=== PATIENT | female | born 1995 | race Two or more races ===

== ENCOUNTER → 2025-02-10 | Outpatient (CLI) | payer BC ==
[2025-02-10 13:39] LABS: BASOPHILS % 0.2 % (0.0-2.0); EOSINOPHILS % 2.1 % (0.0-5.0); HEMATOCRIT. 36.5 % (36.0-48.0); HEMOGLOBIN. 12.3 g/dL (12.0-16.0); LYMPHOCYTES % 12.7 % (20.0-50.0); MEAN PLATELET VOLUME 7.2 fl (7.4-10.4); MONOCYTES % 3.5 % (2.0-8.0); NEUTROPHILS % 81.5 % (40.0-76.0); PLATELET 269 x1000/uL (130-400); RED BLOOD CELL COUNT 4.04 mill/uL (4.2-5.4); RED CELL DISTRIBUTION WIDTH 13.7 % (11.6-14.6)
[2025-02-10 14:38] LABS: HEPATITIS A AB IGM NEGATIVE (Negative)
[2025-02-10 14:39] LABS: HEPATITIS B CORE AB IGM NEGATIVE (Negative)
[2025-02-12 06:08] LABS: HBSAG SCREEN Negative (Negative); HEPATITIS C AB Non Reactive (Non Reactive); VITAMIN D 25-OH 27.7 ng/mL (30.0-100.0)
== END | disposition home or self-care (01) ==
LOC: LAB 11:35
PROVIDERS: ATTEND Obstetrics & Gynecology Obstetrics
DX: O26.899 Other specified pregnancy related conditions, unspecified trimester (principal); E55.9 Vitamin D deficiency, unspecified; Z13.29 Encounter for screening for other suspected endocrine disorder; Z13.1 Encounter for screening for diabetes mellitus; Z3A.00 Weeks of gestation of pregnancy not specified
CPT/HCPCS: 36415; 82306; 82947; 83036; 84443; 85025; 86705; 86709; 86803; 87340